=== PATIENT | female | born 1965 | race Caucasian/White ===

== ENCOUNTER 2016-10-20 11:41 | Day surgery (SDC) | payer OTHER ==
[~2016-10-20] VITALS: Ht 165.1 cm; Wt 56.0 kg
[~2016-10-20 11:41] MED LIST: BUPIVACAINE/PF 0.25% ONE; BUTA1CAP57 PO; CLON-365 PO; DEXAMETHASONE 4 MG/ML, 1ML ONE; EPINEPHRINE 1 MG/ML, 1ML ONE; FENT-58 TD; FENT1PAT76 TP; KETOROLAC 30 MG/1 ML ONE; METO-99 PO; NEOMY/POLYMYXIN B GU IRR. 1 ML IRRIG ONE; OMEP-110 PO; ONDA4TAB10 PO; ONDANSETRON 2MG/ML, 2ML ONE; OXYC15TA60 PO; OXYC1TAB9 PO; PARO30TA45 PO; PREG100C PO; PROPOFOL 10 MG/ML, 20ML ONE; ROCURONIUM 10 MG/ML ONE; STOMACH MED
[2016-10-20 12:47] VITALS: BP 104/72
[2016-10-20] MEDS ORDERED: CLINDAMYCIN 150 MG/ML, 6ML ONE (14:25)
[2016-10-20] MEDS ORDERED: GENTAMICIN 80 MG/2 ML ONE (14:26)
[2016-10-20] MEDS ORDERED: FENTANYL PF 100 MCG/2ML ONE (16:00)
[2016-10-20] MEDS ORDERED: OXYcodone 5 MG/5 ML ORAL.SOL UDC ONE (16:01)
[2016-10-20] MEDS: FENTANYL PF 100 MCG/2ML IV PRN ×2 (16:10→16:19)
[2016-10-20] MEDS ORDERED: ACETAMINOPHEN 325 MG TABLET PO PRN (16:30)
[2016-10-20] MEDS ORDERED: METOCLOPRAMIDE 5 MG/ML, 2ML IV PRN (16:30)
[2016-10-20] MEDS ORDERED: OXYcodone 5 MG/5 ML ORAL.SOL UDC PO PRN (16:30)
[2016-10-20] MEDS ORDERED: PROMETHAZINE 25 MG/ML, 1ML IV PRN (16:30)
[2016-10-20] MEDS ORDERED: ONDANSETRON 2MG/ML, 2ML IVPush PRN (16:30)
== END 2016-10-20 18:25 ==
LOC: OUT 11:41
PROVIDERS: ATTEND Obstetrics & Gynecology Female Pelvic Medicine and Reconstructive Surgery
DX: N83.291 Other ovarian cyst, right side (principal); N39.3 Stress incontinence (female) (male); I10 Essential (primary) hypertension; G43.909 Migraine, unspecified, not intractable, without status migrainosus; F17.210 Nicotine dependence, cigarettes, uncomplicated; K21.9 Gastro-esophageal reflux disease without esophagitis; F32.9 Major depressive disorder, single episode, unspecified; Z90.710 Acquired absence of both cervix and uterus; Z98.890 Other specified postprocedural states; Z88.1 Allergy status to other antibiotic agents; Z88.5 Allergy status to narcotic agent; Z88.8 Allergy status to other drugs, medicaments and biological substances
CPT/HCPCS: 57265; 57288; 58661; 58662; 88305; J0171; J1100; J1580; J1885; J2405; J2704; J3010; J3490; J2250